=== PATIENT | female | born 1960 | race Caucasian/White ===

== ENCOUNTER 2017-07-22 10:14 | Emergency (ER) | payer OTHER ==
[2017-07-22] MEDS: KETOROLAC 30 MG INJ IM (11:34)
== END 2017-07-22 14:16 | disposition home or self-care (01) ==
LOC: FTE 10:14
DX: M79.605 Pain in left leg (principal); E66.9 Obesity, unspecified; Z68.35 Body mass index [BMI] 35.0-35.9, adult
CPT/HCPCS: 93971; 96372; 99284-25